=== PATIENT | male | born 1950 | race Caucasian/White ===

== ENCOUNTER 2023-01-29 11:52 | Emergency (ER) | payer MEDICARE, BC ==
[2023-01-29] MEDS ORDERED: Acetaminophen 325 MG Tab PO ONE (12:46)
[2023-01-29] MEDS ORDERED: Lidocaine 4% 1 each Patch TOP STA (12:46)
[2023-01-29] MEDS ORDERED: Ketorolac 30 MG/ML SDV IVPUSH ONE (12:46)
[2023-01-29 13:02] LABS: BASOPHILS PERCENT AUTO 0.1 % (0.0-1.5); EOSINOPHILS PERCENT AUTO 0.3 % (0.0-7.0); HEMATOCRIT 44.6 % (38.0-50.0); HEMOGLOBIN 15.4 g/dL (13.0-17.0); LYMPHOCYTES ABSOLUTE AUTO 1.4 K/uL (0.6-2.4); LYMPHOCYTES PERCENT AUTO 20.8 % (16.0-40.0); MEAN CORPUSCULAR HEMOGLOBIN 30.4 pg (27.0-32.0); MEAN CORPUSCULAR HGB CONC 34.5 g/dL (31.0-37.0); MONOCYTES ABSOLUTE AUTO 0.4 K/uL (0.0-0.8); MONOCYTES PERCENT AUTO 6.3 % (0.0-15.0); NEUTROPHILS ABSOLUTE AUTO 4.8 K/uL (1.4-5.7); NEUTROPHILS PERCENT AUTO 72.5 % (48.0-80.0); NRBC ABSOLUTE 0 K/uL; PLATELET COUNT,PLT 216 K/uL (150-400); RED BLOOD CELL COUNT 5.07 M/uL (4.50-5.90); WHITE BLOOD CELL COUNT,WBC 6.67 K/uL (4.0-11.0)
[2023-01-29 13:24] LABS: A/G RATIO 1.1 (0.9-1.6); ALBUMIN 3.8 g/dL (3.4-5.0); BILIRUBIN TOTAL 0.6 mg/dL (0.2-1.0); CALCIUM 8.7 mg/dL (8.5-10.1); EST CRCL DRUG DOSING (CG) 68.94 mL/min; PROTEIN TOTAL,TP 7.2 g/dL (6.4-8.2)
[2023-01-29] MEDS ORDERED: Iopamidol 755 Mg/ML 100 ML Bottle IVPUSH ONE (13:52)
== END 2023-01-29 16:56 | disposition home or self-care (01) ==
LOC: MW.ED 11:52
DX: M25.551 Pain in right hip (principal); E78.00 Pure hypercholesterolemia, unspecified; I10 Essential (primary) hypertension; Z79.82 Long term (current) use of aspirin; Z79.899 Other long term (current) drug therapy
CPT/HCPCS: 36415; 71275; 74174; 80053; 85025; 96374; 99284; A9270; J1885; Q9967